=== PATIENT | male | born 1975 | race Caucasian/White ===

== ENCOUNTER → 2018-06-05 07:59 | Outpatient (CLI) | payer BC, SELFPAY ==
[2018-06-05 08:52] LABS: Add Manual Diff / Slide Review NO; Basophils Absolute Auto 100 /uL (0-100); Basophils Percent Auto 1.1 % (0-2); Eosinophils Absolute Auto 300 /uL (0-450); Eosinophils Percent Auto 5.4 % (2-4); Hemoglobin 15.7 g/dL (13.5-17.5); Lymphocytes Absolute Auto 1700 /uL (1100-4500); Mean Corpuscular HGB Conc 34.8 % (30-36); Mean Corpuscular Hemoglobin 28.8 PG (26-34); Mean Corpuscular Volume 82.7 fL (80-100); Monocytes Absolute Auto 400 /uL (0-900); Monocytes Percent Auto 5.9 % (3-14); Neutrophils Absolute Auto 3600 /uL (1500-7000); Neutrophils Percent Auto 59.6 % (50-75); Platelet Count 245 X10^3/uL (150-400); Red Blood Cell Count 5.44 X10^6/uL (4.5-5.9); Red Cell Distribution Width 13.5 % (11.6-14.8)
[2018-06-05 09:40] LABS: Alanine Aminotransferase 61 IU/L (21-72); Albumin 4.8 g/dL (3.5-5.0); Albumin Globulin Ratio 1.5 (1.0-2.8); Alkaline Phosphatase 75 U/L (38-126); Aspartate Aminotransferase 34 IU/L (17-59); Bilirubin Total 0.9 mg/dL (0.2-1.3); Blood Urea Nitrogen 18 mg/dL (9-20); Calcium 9.5 mg/dL (8.4-10.2); Carbon Dioxide 28 mmol/L (22-32); Chloride 98 mmol/L (98-107); Cholesterol 211 mg/dL (140-199); Estimated Glomerular Filt Rate > 60.0 mL/min (>60); Globulin 3.2 g/dL (1.7-4.1); Glucose 128 mg/dL (70-100); HDL Cholesterol 41 mg/dL (40-60); HEMOLYSIS < 15 (0-50); LDL Cholesterol Calculated 123 mg/dL (<100); Potassium 4.3 mmol/L (3.4-5.1); Sodium 139 mmol/L (137-145); Triglycerides 235 mg/dL (35-150)
[2018-06-05 10:03] LABS: Hemoglobin A1C% w Est Avg Glu 5.6 % (4.0-6.0)
== END ==
PROVIDERS: PCP Family Medicine; Visit Provider Family Medicine
DX: I10 Essential (primary) hypertension (principal)
CPT/HCPCS: 36415; 80053; 80061; 83036; 85025

== ENCOUNTER → 2019-02-27 07:31 | Outpatient (CLI) | payer OTHER, SELFPAY ==
[2019-02-27 08:40] LABS: Alanine Aminotransferase 46 IU/L (<50); Albumin 4.6 g/dL (3.5-5.0); Albumin Globulin Ratio 1.8 (1.0-2.8); Alkaline Phosphatase 80 U/L (38-126); Aspartate Aminotransferase 25 IU/L (17-59); BUN Creatinine Ratio 17.3 (6-22); Bilirubin Total 0.6 mg/dL (0.2-1.3); Blood Urea Nitrogen 19 mg/dL (9-20); Calcium 9.6 mg/dL (8.4-10.2); Carbon Dioxide 28 mmol/L (22-32); Chloride 102 mmol/L (98-107); Cholesterol 185 mg/dL (140-199); Estimated Glomerular Filt Rate > 60.0 mL/min (>60); Globulin 2.6 g/dL (1.7-4.1); Glucose 110 mg/dL (70-100); HDL Cholesterol 40 mg/dL (40-60); HEMOLYSIS < 15 (0-50); LDL Cholesterol Calculated 114 mg/dL (<100); Potassium 4.1 mmol/L (3.4-5.1); Sodium 139 mmol/L (137-145); Total Protein 7.2 g/dL (6.3-8.2); Triglycerides 157 mg/dL (35-150)
== END ==
PROVIDERS: PCP Family Medicine; Visit Provider Family Medicine
DX: E78.5 Hyperlipidemia, unspecified (principal); I10 Essential (primary) hypertension
CPT/HCPCS: 36415; 80053; 80061

== ENCOUNTER → 2022-03-20 06:41 | Outpatient (CLI) | payer BC, SELFPAY ==
--- NOTE | 2022-03-20 06:43 | DI.ECHO.S_ITS ---
[place] [facility]---------[facility] +---------+ : : [address] : : : : [id number] : : : : Phone: [phone]+ Echocardiogram Report + + :Name: ROEL PIÑA Study Date: 03/20/2022 Height: 73 in : [id number] ReadingLocation: Weight: 280 lb : : Gender: Male BSA: 2.5 m2 : :: 1975 Age: 46 yrs BP: 166/97 mmHg: :Reason For Study: Murmur : :Ordering Physician: TOBI, : :MARTIN Ross Performed By: Ye Zuniga : :Referring: MARTIN BRITTON : + + Interpretation Summary 1) Mildly increased left ventricular thickness (concentric) with normal size, normal wall motion, and normal systolic function (EF 60-65%). 2) Normal right ventricular size and function. 3) The echo findings are consistent with left ventricular outflow obstruction. The LVOT velocity is 3.2 m/s (peak gradient 41mmHg). The left ventricular outflow velocity with valsalva is 4.17 m/s (peak gradient 70mmHg). 4) There is systolic anterior motion of the mitral valve. 5) No significant valvular regurgitation or stenosis. 6) No prior Echo available for comparison. Findings suggestive of hypertrophic obstructive cardiomyopathy. Recommend cardiology consultation. Procedure: A two-dimensional transthoracic echocardiogram with color flow and Doppler was performed. The study quality was technically adequate. There is no prior echocardiogram noted for this patient. The patient was in normal sinus rhythm during the exam. Left Ventricle: The left ventricle is normal in size. The echo findings are consistent with left ventricular outflow obstruction. The LVOT velocity is 3.2 m/s. The left ventricular outflow velocity with valsalva is 4.17 m/s. There is mild concentric left ventricular hypertrophy. Left ventricular systolic function is normal. The ejection fraction is estimated to be 60-65%. There are no focal wall motion abnormalities. Diastolic function could not be accurately assessed due to unobtainable data. Right Ventricle: The right ventricle is normal in size and function. Atria: Both atria are normal in size. The interatrial septum grossly appears intact with no obvious evidence for an atrial septal defect. Mitral Valve: There is systolic anterior motion of the mitral valve. There is no mitral regurgitation noted. Aortic Valve: The aortic valve is grossly normal. No aortic regurgitation is present. Tricuspid Valve: The tricuspid valve is normal in structure and function. No tricuspid regurgitation. Pulmonary artery pressures cannot be estimated because of the lack of a measurable TR jet velocity. Pulmonic Valve: The pulmonic valve is normal in structure and function. There is no pulmonic valvular regurgitation. Great Vessels: The aortic root is normal size. The dimensions of the ascending aorta are normal. The IVC is of normal diameter and collapses greater than 50% with a sniff. This suggests a low right atrial pressure of 3 mm Hg. Pericardium/ Pleura There is no pericardial effusion. There is no pleural effusion. MMode/2D Measurements & Calculations LVIDd: 4.7 cm LVOT diam: 2.3 cm LVIDs: 3.2 cm Ao root diam: 3.4 cm FS: 31.1 % asc Aorta Diam: 3.6 cm IVSd: 1.2 cm LVPWd: 1.2 cm LV haq. diameter/BSA (cm/m^2): 1.9 LV sys. diameter/BSA (cm/m^2): 1.3 LA dimension: 3.2 cm RA long axis: 5.3 cm LA A2 area: 25.7 cm2 LA A4 area: 22.4 cm2 LA length (vol): 6.0 cm LA vol: 81.6 ml LA vol index: 32.9 ml/m2 TAPSE_phl: 3.4 cm Doppler Measurements & Calculations MV E max matthew: 79.1 cm/sec MV P1/2t-pr_phl: 100.0 msec MV A max matthew: 89.7 cm/sec MV E/A: 0.88 Med Peak E' Matthew: 6.6 cm/sec E/E' med: 12.0 Lat Peak E' Matthew: 16.5 cm/sec E/E' lat: 4.8 E/e' average: 8.4 MV dec time: 0.34 sec Reading Physician:11:43 AM
== END ==
PROVIDERS: PCP Family Medicine; Referring Provider Family Medicine; Visit Provider Family Medicine
DX: R01.1 Cardiac murmur, unspecified (principal)
CPT/HCPCS: 93306

== ENCOUNTER → 2022-04-04 09:08 | Outpatient (CLI) | payer BC, SELFPAY ==
[2022-04-04 11:31] LABS: COVID19 -Nasal RAPID Negative (Negative)
== END ==
PROVIDERS: PCP Family Medicine; Visit Provider Surgery
DX: Z20.822 Contact with and (suspected) exposure to COVID-19 (principal); Z01.812 Encounter for preprocedural laboratory examination
CPT/HCPCS: 87635; C9803

== ENCOUNTER 2022-04-05 07:50 | Day surgery (SDC) | payer BC, SELFPAY ==
--- NOTE | 2022-04-05 | PATH_ITS ---
[facility] Accession Number: [id number] No. of containers..03 Tissue . 01 Material submitted: . PART A: colon - DESCENDING POLYP PART B: colon - SIGMOID POLYP PART C: colon - SIGMOID POLYP BASE . 01 Diagnosis: A. Descending Colon, Polyp, Biopsy: Mucosal prolapse polyp. Negative for dysplasia and malignancy. . B. Sigmoid Colon, Polyp, Biopsy: Tubulovillous adenoma. The excision appears complete. No evidence of malignancy or high-grade dysplasia. . C. Sigmoid Colon, Polyp Base, Biopsy: Colonic mucosa with no diagnostic abnormality. Negative for active, chronic, and microscopic colitis. Negative for dysplasia and malignancy. . MRV 04/09/2022 1217 Local . 01 Electronically signed: . Elda Ram MD, Pathologist NPI- [id number] . 01 Gross description: . Part A: DESCENDING POLYP: Received in formalin is 1 fragment(s) of rubin, soft tissue measuring 0.3 x 0.3 x 0.3 cm submitted entirely in 1 cassette(s) Part B: SIGMOID POLYP: Received in formalin is 1 fragment of rubin soft tissue measuring 1.1 x 1.1 x 2.1 cm. Specimen is sectioned and submitted in its entirety in 2 cassettes. Part C: SIGMOID POLYP BASE: Received in formalin is 1 fragment(s) of rubin, soft tissue measuring 1.1 x 0.8 x 0.6 cm submitted entirely in 1 cassette(s) /BRUNA 04/06/2022 0100 Local . 01 Pathologist provided ICD-10: D12.5 . 01 CPT . 460890, 560979, 334520 Specimen Comment: A courtesy copy of this report has been sent to [phone] Performed at: 01 [facility] [address], [place], [place] [id number] MD Bridger Crawford MD Phone: [phone]
[2022-04-05] MEDS: LACTATED RINGERS 1,000 ML 42 ML IV (08:17)
[2022-04-05 08:24] VITALS: BP 156/81; PULSE 65; RESP 17; TEMP 36.8; O2SAT 100; BMI 36.9
--- NOTE | 2022-04-05 09:02 | PM.HP.1 ---
History of Present Illness History of Present Illness Date Patient Seen: 04/05/22 Time Patient Seen: 09:02 Chief complaint: Colonoscopy Narrative: Jorge is a 46-year-old man who is here for a colonoscopy due to a recent positive stool blood test. He has no symptoms. He is never had a colonoscopy before. He has no known family history of colon cancer. Patient History Family & Social History Social History: household members spouse Tobacco & Substance use: Tobacco type smokeless tobacco Smoking Status Never smoker alcohol intake current alcohol intake frequency 3 or more drinks per day Substance Use Type does not use Meds Home Medications and Allergies Home Medications Medication Instructions Recorded Confirmed Type sodium sul 1.479 gram-potas ch See Rx Instructions PO PER PKG DIR 02/21/22 Rx 0.188 gram-magnes sul 0.225 gram #24 tabs tablet (Sutab) amlodipine 10 mg tablet 10 mg PO DAILY 04/05/22 04/05/22 History lisinopril 20 2 tab PO DAILY 04/05/22 04/05/22 History mg-hydrochlorothiazide 25 mg tablet Exam Vital Signs (past 8 hours): - 04/05/22 08:24 Temperature 98.2 F Pulse Rate 65 Respiratory Rate 17 Blood Pressure 156/81 H Pulse Oximetry 100 Oxygen Delivery Method Room Air Oxygen Delivery Method Room Air Const General: healthy appearing Assessment & Plan Assessment and plan (1) Positive colorectal cancer screening using Cologuard test: Status: Acute Plan 46-year-old man here for colonoscopy due to positive test. We reviewed the risks and benefits and he would like to proceed. Time Spent With Patient Critical Care time: I spent a total of [] minutes of critical care time on this patient's care today; this time is exclusive of procedural time.
--- NOTE | 2022-04-05 09:57 | PM.OP.COLON ---
Operative Date/Time/Diagnoses Date of procedure: 04/05/22 Time of procedure: 09:57 Pre-op diagnosis: Positive stool blood test Post-op diagnosis: same Procedure & Clinicians Study performed: Colonoscopy Same procedure as scheduled: Yes Surgeon: Tio Kemp Procedure Notes Procedure in detail: Surgeon: Tio Kemp MD Anesthesia: Dr. Blair Procedure: The patient was brought to the endoscopy suite, placed in left lateral decubitus position. The patient was connected to monitoring devices. A time-out was performed. Sedation was administered. Once the patient was adequately sedated, a digital rectal exam was performed and was normal. The scope was then inserted and advanced to the cecum where the appendiceal orifice was identified and photographed. The scope was then slowly withdrawn over greater than 6 minutes. The mucosa was thoroughly inspected. There was a 8 mm polyp in the descending colon removed with a cold snare. There was a large pedunculated polyp on a rather long stalk in the sigmoid colon at approximately 28 cm from the dentate line which was roughly 4 cm. We went back and took additional tissue from the base of the polyp. It was retrieved with a Mcconnell net. We then performed a tattoo next to the polypectomy site. This was removed with a hot snare. The scope was retroflexed in the rectum. No other abnormalities were noted. The scope was straightened and removed. The patient was awakened and brought to recovery. Scope withdrawal time: 26 minutes Sedation time: 41 minutes EBL: 5 mL Findings: 8 mm polyp in the descending colon and 4 cm pedunculated polyp on a stalk in the sigmoid colon Post-procedure Recommendations: Will call with biopsy results Disposition: PACU
[2022-04-05 10:02] VITALS: BP 103/63; PULSE 62; RESP 14; TEMP 36.1; O2SAT 92
[2022-04-05 10:07] VITALS: BP 105/63; PULSE 54; RESP 12; O2SAT 94
[2022-04-05 10:13] VITALS: BP 120/72; PULSE 54; RESP 14; O2SAT 93
[2022-04-05 10:23] VITALS: BP 128/71; PULSE 53; RESP 16; O2SAT 95
[2022-04-05 10:29] VITALS: BP 126/73; PULSE 53; RESP 15; TEMP 36.2; O2SAT 95
== END 2022-04-05 10:45 | disposition home or self-care (01) ==
PROVIDERS: PCP Family Medicine; Referring Provider Surgery; Visit Provider Surgery
PROC: 0DJD8ZZ Inspection of Lower Intestinal Tract, Via Natural or Artificial Opening Endoscopic (ICD-10-PCS; CPT 45378; principal; 2022-04-05 09:15)
DX: R19.5 Other fecal abnormalities (principal); D12.5 Benign neoplasm of sigmoid colon
CPT/HCPCS: 45385; 45381; J2250; J2704; J3010

== ENCOUNTER → 2022-07-19 12:24 | Outpatient (CLI) | payer BC, SELFPAY ==
--- NOTE | 2022-07-19 | DI.ECHO.S_ITS ---
[place] [facility]---------+ [facility] +---------+ : : [address] : : : : [id number] : : : : Phone: [phone]+ Echocardiogram Report + + :Name: ROEL PIÑA Study Date: 07/19/2022 Height: 73 in : :[facility] ReadingLocation: Weight: 280 lb : : Gender: Male BSA: 2.5 m2 : :: 1975 Age: 47 yrs BP: 143/68 mmHg: :Reason For Study: OBSTRUCTIVE HYPERTROPHOIC CARDIOMYOPATHY : :Ordering Physician: HERNANDO, : :JORGE Performed By: Amna Narvaez : :Referring: JORGE CASTREJON : + + Interpretation Summary 1) Mildly increased left ventricular thickness with normal size, normal wall motion, and normal systolic function (EF 65-70%). 2) Normal right ventricular size and function. 3) Proximal septum thickness is 1.5cm. The LVOT velocity is 4.96 m/s (peak gradient 98.6mmHg). The left ventricular outflow velocity with valsalva is 6.01 m/s (peak gradient 144mmHg). 4) There is systolic anterior motion of the mitral valve. 5) No significant valvular regurgitation or stenosis. 6) Compared to the Echo done03/20/2022, peak LVOT gradient with valsalva is higher on this study. Procedure: A two-dimensional transthoracic echocardiogram with color flow and Doppler was performed. The study quality was technically adequate. Comparison is made with the echocardiogram of 03/20/2022. The patient was in sinus rhythm with heart rates between 52-75 bpm during the exam. Left Ventricle: The left ventricle is normal in size. Proximal septal thickening is noted. Left ventricular wall thickness is mildly increased. The left ventricular outflow velocity with valsalva is 6m/s. The LVOT velocity is 4.96 m/s (peak gradient 98.6mmHg). The left ventricular outflow velocity with valsalva is 6.01 m/s (peak gradient 144mmHg). The ejection fraction is estimated to be 65-70%. Left ventricular systolic function appears normal without focal wall motion abnormalities. Diastolic parameters suggest a relaxation abnormality of the left ventricle, consistent with probable normal filling pressures. Right Ventricle: The right ventricle is normal in size and function. Atria: The left atrium is moderately dilated. Right atrial size is normal. There is no Doppler evidence for an interatrial shunt. Mitral Valve: There is systolic anterior motion of the mitral valve. There is mild mitral regurgitation. Aortic Valve: The aortic valve is trileaflet. The aortic valve opens well. There is no aortic valve stenosis. No aortic regurgitation is present. Tricuspid Valve: The tricuspid valve is normal in structure and function. There is trace tricuspid regurgitation. Pulmonary artery pressures cannot be estimated because of the lack of a measurable TR jet velocity. Pulmonic Valve: The pulmonic valve is not well visualized. There is no pulmonic valvular regurgitation. Great Vessels: The aortic root is normal size. The dimensions of the ascending aorta are normal. The IVC is of normal diameter and collapses greater than 50% with a sniff. This suggests a low right atrial pressure of 3 mm Hg. Pericardium/ Pleura There is no pericardial effusion. There is no pleural effusion. MMode/2D Measurements & Calculations LVIDd: 5.4 cm LVOT diam: 2.3 cm LVIDs: 3.1 cm Ao root diam: 3.3 cm FS: 42.2 % asc Aorta Diam: 3.3 cm IVSd: 0.85 cm Ao Arch Diam (Prox Trans): 2.9 cm LVPWd: 1.2 cm LV haq. diameter/BSA (cm/m^2): 2.2 LV sys. diameter/BSA (cm/m^2): 1.2 LA A2 area: 27.8 cm2 RA long axis: 5.8 cm LA A4 area: 29.7 cm2 RA area: 21.9 cm2 LA length (vol): 6.9 cm RA vol: 69.9 ml LA vol: 102.2 ml RA : 28.2 ml/m2 LA vol index: 41.2 ml/m2 IVC diam: 1.3 cm RVD1 (basal): 3.4 cm RVD2 (mid): 3.1 cm TAPSE: 2.6 cm Doppler Measurements & Calculations Ao V2 max: 496.5 cm/sec MV E max matthew: 95.2 cm/sec Ao V2 mean: 291.1 cm/sec MV A max matthew: 98.2 cm/sec Ao max P.6 mmHg MV E/A: 0.97 Ao mean P.3 mmHg Med Peak E' Matthew: 8.0 cm/sec Ao V2 VTI: 95.8 cm E/E' med: 11.8 Lat Peak E' Matthew: 10.0 cm/sec E/E' lat: 9.6 E/e' average: 10.7 MV dec time: 0.33 sec TR max matthew: 234.1 cm/sec TR max P.9 mmHg PA V2 max: 127.0 cm/sec PA V2 mean: 83.9 cm/sec PA mean P.3 mmHg PA pr(Accel): 36.2 mmHg Reading Physician:12:54 PM
== END ==
PROVIDERS: PCP Family Medicine; Referring Provider Internal Medicine Cardiovascular Disease; Visit Provider Internal Medicine Cardiovascular Disease
DX: I42.1 Obstructive hypertrophic cardiomyopathy (principal)
CPT/HCPCS: 93306

== ENCOUNTER → 2023-08-07 09:10 | Outpatient (CLI) | payer BC, SELFPAY ==
--- NOTE | 2023-08-07 09:11 | DI.ECHO.S_ITS ---
Version: 1 Study ID: [id number] [place] [address] Name: ROEL PIÑA Study Date: 08/07/2023, 9: 46 AM : 1975 BP: 155 / 82 mmHg Gender: Male Height: 73 in Age: 48 Years Weight: 285 lb BSA: 2.5 mA? Ordering: JORGE CASTREJON Referring: JORGE CASTREJON Clinician: Amna Narvaez Reason For Study: OBSTRUCTIVE HYPERTROPHIC CARDIOMYOPATHY History: Summary Statements 1) Mildly increased left ventricular thickness (concentric) with normal size, normal wall motion, and normal systolic function (EF 60-65%). 2) Very proximal septum thickness is 1.5cm.Peak LVOT gradient 112mmHg and peak velocity 5.3m/ with valsalva. 3) Grossly, normal right ventricular size and function. 4) There is systolic anterior motion of the mitral valve. 5) There is mild mitral regurgitation. 6) Compared to the Echo done 07/19/2022, peak LVOT gradient has increased slightly on this study. Procedure: A two-dimensional transthoracic echocardiogram with color flow and Doppler was performed. The study quality was technically adequate. Comparison is made with the echocardiogram of 07/19/2022. The patient was in sinus bradycardia with heart rates between 45-50 bpm during the exam. Left Ventricle: The left ventricle is normal in size. There is mild concentric left ventricular hypertrophy. Proximal septal thickening is noted. Peak LVOT gradient 112mmHg and peak velocity 5.3m/ with valsalva. The ejection fraction is estimated to be 60-65%. Left ventricular wall motion is normal. Right Ventricle: The right ventricle is grossly normal size. The right ventricular systolic function is normal. Atria: The left atrium is mildly dilated. Right atrial size is normal. There is no Doppler evidence for an interatrial shunt. Mitral Valve: There is systolic anterior motion of the mitral valve. There is mild mitral regurgitation. Aortic Valve: The aortic valve is trileaflet. The aortic valve opens well. There is no aortic valve stenosis. No aortic regurgitation is present. Tricuspid Valve: The tricuspid valve is normal in structure and function. There is trace tricuspid regurgitation. Pulmonic Valve: The pulmonic valve leaflets are thin and pliable; valve motion is normal. There is mild pulmonic regurgitation. Great Vessels: The aortic root is normal size. The ascending aorta is mildly enlarged. The IVC is of normal diameter and collapses greater than 50% with a sniff. This suggests a low right atrial pressure of 3 mm Hg. Pericardium/ Pleura: There is no pericardial effusion. There is no pleural effusion. 2D and M-Mode Measurements and Calculations LVIDd: 5.3 cm LVOT diam: 2.26 cm LVIDs: 3.3 cm Ao root diam: 3.5 cm IVSd: 1.14 cm asc Aorta Diam: 3.8 cm LVPWd: 1.18 cm Ao Arch Diam (Prox Trans): 3.1 cm LV haq. diameter/BSA (cm/m^2): 2.13 LV sys. diameter/BSA (cm/m^2): 1.31 RVD1 (basal): 4.2 cm TAPSE: 2.8 cm LA A4 area: 26.6 customer success specialist? IVC diam: 1.97 cm LA A2 area: 27.9 customer success specialist? RA area: 22.3 customer success specialist? LA length (vol): 6.3 cm RA long axis: 5.5 cm LA vol: 100.1 ml RA vol: 76.3 ml LA vol index: 40.0 ml/mA? RA : 30.5 ml/mA? Doppler Measurements and Calculations Ao V2 max: 492.4 cm/sec Ao V2 mean: 299.0 cm/sec Ao V2 VTI: 112.1 cm Ao max P.7 mmHg Ao mean P.6 mmHg MV E max matthew: 80.5 cm/sec MV dec time: 0.42 sec MV A max matthew: 102.0 cm/sec MV E/A: 0.79 Med Peak E' Matthew: 7.2 cm/sec Lat Peak E' Matthew: 10.7 cm/sec E/e' average: 9.4 PA V2 max: 123.3 cm/sec PA mean P.3 mmHg Electronically signed by: Bhtalat Castrejon 08/08/2023, 12: 37 PM
== END ==
LOC: ECHO 09:11
PROVIDERS: PCP Family Medicine; Referring Provider Internal Medicine Cardiovascular Disease; Visit Provider Internal Medicine Cardiovascular Disease
DX: I42.1 Obstructive hypertrophic cardiomyopathy (principal); I34.0 Nonrheumatic mitral (valve) insufficiency; I37.1 Nonrheumatic pulmonary valve insufficiency; I77.89 Other specified disorders of arteries and arterioles
CPT/HCPCS: 93306